=== PATIENT | female | born 1985 | race Asian ===

== ENCOUNTER 2019-07-01 06:47 | Emergency (ER) | payer BC ==
[~2019-07-01] VITALS: Ht 162.6 cm; Wt 118.0 kg
[2019-07-01] MEDS ORDERED: KETOROLAC 30MG/ML VIAL IV STA (07:44)
[2019-07-01] MEDS ORDERED: SODIUM CHLORIDE 0.9% 1,000 ML IV ONE (07:44)
[2019-07-01 07:59] LABS: BASOPHILS % 0.1 % (0.0-2.0); HEMATOCRIT. 36.7 % (36.0-48.0); LYMPHOCYTES % 23.5 % (20.0-50.0); MEAN CORPUSCULAR HEMOGLOBIN 24.8 pg (28.0-32.0); MONOCYTES % 7.4 % (2.0-8.0); PLATELET 193 x1000/uL (130-400); RED BLOOD CELL COUNT 4.83 mill/uL (4.2-5.4)
[2019-07-01 08:06] LABS: CHLORIDE 108 mEq/L (98-107)
[2019-07-01 08:50] LABS: CHLORIDE 109 mEq/L (98-107)
[2019-07-01 13:32] VITALS: BP 117/70
== END 2019-07-01 14:27 | disposition home or self-care (01) ==
LOC: ER 06:47
DX: R07.9 Chest pain, unspecified (principal)
CPT/HCPCS: 36415; 71045; 80048; 80053; 82330; 83880; 84484; 85025; 93005; 96361; 96374; 99284; J1885; J7030